=== PATIENT | female | born 1995 | race Caucasian/White ===

== ENCOUNTER 2019-03-23 18:07 | Outpatient (CLI) | payer OTHER ==
[~2019-03-23] VITALS: Ht 165.1 cm; Wt 70.7 kg
[2019-03-23 18:25] VITALS: BP 121/69
[2019-03-23] MEDS ORDERED: PRENTAB9 PO (18:30)
== END 2019-03-23 19:40 | disposition home or self-care (01) ==
LOC: M LDO 18:07
PROVIDERS: ATTEND Obstetrics & Gynecology
DX: O26.893 Other specified pregnancy related conditions, third trimester (principal); N89.8 Other specified noninflammatory disorders of vagina; Z3A.34 34 weeks gestation of pregnancy
CPT/HCPCS: 59025; G0378; G0463

== ENCOUNTER 2019-04-25 10:14 | Inpatient (IN) | payer OTHER ==
[~2019-04-25] VITALS: Ht 165.1 cm; Wt 71.0 kg
[2019-04-25] VITALS (11 sets, daily range): BP systolic 111–129; BP diastolic 53–75
[~2019-04-25 10:14] MED LIST: PRENTAB9 PO
[2019-04-25] MEDS ORDERED: IRON27TA2 PO (10:33)
[2019-04-25] MEDS ORDERED: VITA100T59 PO (10:33)
[2019-04-25] MEDS ORDERED: LACTATED RINGER'S 1000 ML IV STA (11:37)
[2019-04-25] MEDS ORDERED: miSOPROStol 50 MCG 1/2 TAB (S0191) PO ONE (12:00)
[2019-04-25 12:04] LABS: BASO # 0.1 10^3/uL (0.0-0.2); BASO % 0.5 % (0.0-1.0); EOS # 0.2 10^3/uL (0.0-0.5); EOS % 1.1 % (0.0-3.0); HEMATOCRIT 32.1 % (36.0-47.0); HEMOGLOBIN 9.5 g/dl (12.0-15.5); LYMPH # 2.5 10^3/uL (1.5-5.0); LYMPH % 18.9 % (24.0-44.0); MEAN CORPUSCULAR HEMOGLOBIN 22.7 pg (27.0-33.0); MEAN CORPUSCULAR HGB CONC 29.6 g/dl (32.0-36.5); MEAN CORPUSCULAR VOLUME 76.6 fl (80.0-96.0); MONO # 1.7 10^3/uL (0.0-0.8); MONO % 12.6 % (0.0-5.0); NEUTROPHILS # 8.6 10^3/uL (1.5-8.5); NEUTROPHILS % 65.7 % (36.0-66.0); PLATELET COUNT, AUTOMATED 116 10^3/uL (150-450); RED BLOOD COUNT 4.19 10^6/uL (4.00-5.40); WHITE BLOOD COUNT 13.1 10^3/uL (4.0-10.0)
--- NOTE | 2019-04-25 13:06 | HPEPDOC ---
Obstetrical History & Physical General Date of Admission Apr 25, 2019 at 10:14 History of Present Illness 23yo at 39+1wks presents to LND for scheduled IOL d/t gestational thrombocytopenia and anemia ([id number]: Platelets 87, H/H 8.8/28.7). Pt reports +FM, denies LOF/VB/CTX. Pt started on Prednisone series on Sunday, [id number], and took last dose this morning. Pt has had two previous SVDs at 39+1 and 39+4wks, pelvis tested to 7lbs 6oz. GBS Status is negative, HIV negative, Blood type O Positive Chief Complaint: Induction of labor Information Provided By: Patient Care Care: Good Care Number of Visits: 7 Dating Final EDC: May 01, 2019 Final EDC for Daily Update: May 01, 2016 Final EDC by: LMP, 2nd trimester (US) Antepartum Course Height (inches): 65 Pre- weight (lbs.): 140 Admission Weight (lbs.): 157 Change in Weight (lbs.): 17 Past Medical History Past Obstetrical History : Past Obstetrical History: Multigravida (1: at 39+4wks, uncomplicated; 2: at 39+1wks, gestational thrombocytopenia) [employer] History: No pertinent history Past Medical History Surgical History: Gallbladder, Hemlock teeth Family History Significant Family History: No pertinent family hx Social History Marital Status: Family situation: Spouse/partner home Psychosocial History: No pertinent psych hx * Smoker: non-smoker Imunizations Tdap status: declined Allergies Coded Allergies: No Known Allergies (Unverified , 03/23/19) Medications Scheduled Ascorbic Acid (Vitamin C) 100 Mg Tablet, 1 TAB PO DAILY Ferrous Gluconate (Iron) 236 Mg Tablet, 1 TAB PO DAILY No.137/Iron/Folic Acd ( Vitamin Tablet) 1 Each Tablet, 1 TAB PO DAILY Physical Examination Physical Examination GENERAL: Alert and oriented times three. BREAST: . ABDOMEN: Gravid and non-tender to touch. FETUS: Is vertex by sterile vaginal examination. HEART RATE: Regular rate and rhythm. LUNGS: Clear to auscultation. EXTREMITIES: No edema. Vital Signs/I&O O: VSS FHR at admission: 130s, moderate variability, +accels, no decels No CTX present VTX: 2/50/-3, posterior, medium Laboratory Data 24H LABS Laboratory Tests 2 04/25/19 10:49: Serology Scanned Report Hepatitis B Testing 04/25/19 11:35: Immature Granulocyte % (Auto) 1.2, White Blood Count 13.1H, Red Blood Count 4.19, Hemoglobin 9.5L, Hematocrit 32.1L, Mean Corpuscular Volume 76.6L, Mean Corpuscular Hemoglobin 22.7L, Mean Corpuscular Hemoglobin Concent 29.6L, Red Cell Distribution Width 16.6H, Platelet Count 116L, Neutrophils (%) (Auto) 65.7, Lymphocytes (%) (Auto) 18.9L, Monocytes (%) (Auto) 12.6H, Eosinophils (%) (Auto) 1.1, Basophils (%) (Auto) 0.5, Neutrophils # (Auto) 8.6H, Lymphocytes # (Auto) 2.5, Monocytes # (Auto) 1.7H, Eosinophils # (Auto) 0.2, Basophils # (Auto) 0.1, Nucleated Red Blood Cells % (auto) 0.2H, Syphilis Serology NONREACTIVE CBC/BMP Laboratory Tests 04/25/19 11:35 Red Blood Count 4.19, Mean Corpuscular Volume 76.6 L, Mean Corpuscular Hemoglobin 22.7 L, Mean Corpuscular Hemoglobin Concent 29.6 L, Red Cell Distribution Width 16.6 H, Neutrophils (%) (Auto) 65.7, Lymphocytes (%) (Auto) 18.9 L, Monocytes (%) (Auto) 12.6 H, Eosinophils (%) (Auto) 1.1, Basophils (%) (Auto) 0.5, Neutrophils # (Auto) 8.6 H, Lymphocytes # (Auto) 2.5, Monocytes # (Auto) 1.7 H, Eosinophils # (Auto) 0.2, Basophils # (Auto) 0.1 Pertinent Laboratoy Data Blood Type: O+ RBC Antibody Screen: Negative HIV: Positive Hepatitis B: Negative Rapid Plasma Reagin: Nonreactive Rubella: Immune Varicella: Nonreactive Chlamydia/Gonorrhea: Negative Group B Streptococcus: Negative Anatomy Ultrasound Ultrasound Date: December 12, 2018 Placenta Location: Posterior Normal Anatomy: No (limited evaluation of lateral ventricles) Other Ultrasounds [id number]: f/u intracranial anatomy at [facility] - WNL Steroid Therapy Steroid Therapy: Yes (PO Prednisone [id number]) Vaginal Examination Dilation: 2cm Effacement: 50% Station: -3 Cervical Consistency: Medium Cervical Position: Posterior Presentation: Cephalic presentation Tocometer Contractions: No Assessment/Plan Assessment Neeta is a 23yo at 39+1wks admitted to LND for IOL d/t gestational thrombocytopenia. Pt is O Positive, GBS Negative, HIV Negative. Category I FHT Plan Admit to LND, Consented for IOL, labor, and vaginal delivery IV Start, admission labs drawn PO and IV hydration Start IOL with CRB 80/80 and Buccal Cytotec 50mcg CEMF x1-2 hours after cytotec if Category I; then continuous with epidural, Category II tracing, or if pitocin started reassess in 4 hours Consult with OB as indicated Epidural when desires Anticipate Can have lunch VALENTIN MERIDA CNM Apr 25, 2019 13:06
[2019-04-25] MEDS ORDERED: PANTOPRAZOLE 40MG INJ (PROTONIX) (C9113) IV ONE (14:00)
[2019-04-25] MEDS ORDERED: OXYTOCIN DRIP 30 UNITS in APPROPRIATE DILUENT 1 EA IV SCH ×2 (17:00→23:10)
--- NOTE | 2019-04-25 17:00 | IPNPDOC ---
Obstetrical Progress Note Date of Service Apr 25, 2019 Subjective patient is a 23 yo @ 39+1wks gestation IOL for gestational thrombocytopenia. newman bulb placed and came out around 1600. patient feeling mild contractions. vitals: reviewed normal NAD fht: 140/mod mayte/pos accel/no decel. toco: ctx q 2mins ce: 50/-2 a/p patient in early labor. start pit for stronger contractions. recheck 4-6hrs, possible AROM at that time as indicated. patient may request have epidural when she desires. Repeat cbc in anticipation for epidural request. DO Amna Objective Vital Signs Date Time Temp Pulse Resp B/P (MAP) Pulse Ox O2 Delivery O2 Flow Rate FiO2 04/25/19 14:39 97.8 92 124/71 (88) Assessment Heart Rate (FHR): 140 Variability: Moderate Accelerations: Positive Decelerations: None Heart Rate Tracing: Category I Tocometer Contractions: Yes Frequency: regular, every 2-2 min. Sterile Vaginal Examination Dilation: 4 cm Effacement (%): 50% Station: -2 Cervical Consistency: Medium Cervical Position: Middle Postion/Presentation: Cephalic presentation DONTE HERNANDEZ DO Apr 25, 2019 17:00
[2019-04-25] MEDS: LR 1,000 ML IV SCH ×2 (17:21→20:00)
[2019-04-25 18:05] LABS: HEMATOCRIT 32.4 % (36.0-47.0); HEMOGLOBIN 9.7 g/dl (12.0-15.5); MEAN CORPUSCULAR HEMOGLOBIN 22.6 pg (27.0-33.0); MEAN CORPUSCULAR HGB CONC 29.9 g/dl (32.0-36.5); MEAN CORPUSCULAR VOLUME 75.5 fl (80.0-96.0); PLATELET COUNT, AUTOMATED 131 10^3/uL (150-450); RED BLOOD COUNT 4.29 10^6/uL (4.00-5.40); WHITE BLOOD COUNT 14.7 10^3/uL (4.0-10.0)
[2019-04-25] MEDS ORDERED: FENTANYL 2MCG/ML ROPIVACAINE 0.2% IN 0.9% NACL 100ML IVBAG As Ordered ONE (19:33)
[2019-04-25] MEDS ORDERED: EPIDURAL/PCA KEYS XX PRN (21:00)
[2019-04-25] MEDS ORDERED: ONDANSETRON 4MG/2ML VIAL (J2405) IV PRN (21:00)
[2019-04-25] MEDS ORDERED: LACTATED RINGER'S 1000 ML IV PRN (21:00)
[2019-04-25] MEDS ORDERED: diphenhydrAMINE INJ 50MG/ML VIAL (J1200) IV PRN (21:00)
[2019-04-25] MEDS ORDERED: ePHEDrine SULFATE 25 MG/5 ML(5MG/ML) SYRINGE IV PRN (21:00)
[2019-04-25] MEDS ORDERED: REFRIGERATOR IV KEYS XX PRN (21:00)
[2019-04-25] MEDS ORDERED: EPIDURAL COMMENT XX SCH (21:00)
[2019-04-25] MEDS ORDERED: NALOXONE INJ 0.4 MG/1 ML VIAL (J2310) IV PRN (21:00)
[2019-04-25] MEDS ORDERED: FENTANYL/ROPIVACAINE/NACL BAG 100 ML EPIDURAL SCH (21:00)
--- NOTE | 2019-04-25 21:32 | IPNPDOC ---
Obstetrical Progress Note Date of Service Apr 25, 2019 Subjective Patient comfortable with epidural. pit: 2mU fht: 135/mod mayte/pos accel/occasional variable decel toco: ctx q 1-2mins ce: /-2, AROM clear. a/p patient in latent labor, continue to titrate pit to effect. recheck in 4hrs, sooner as indicated. DO Amna Objective Vital Signs Date Time Temp Pulse Resp B/P (MAP) Pulse Ox O2 Delivery O2 Flow Rate FiO2 04/25/19 18:33 81 121/71 (88) 04/25/19 17:20 98.7 Assessment Heart Rate (FHR): 135 Variability: Moderate Accelerations: Positive Decelerations: Variable, Intermittent Heart Rate Tracing: Category II Tocometer Contractions: Yes Frequency: every 1-3 min. Sterile Vaginal Examination Dilation: 4 cm Effacement (%): 50% Station: -2 Cervical Consistency: Medium Cervical Position: Middle Postion/Presentation: Cephalic presentation DONTE HERNANDEZ DO Apr 25, 2019 21:32
[2019-04-25] MEDS ORDERED: MEASLES,MUMPS,RUBELLA VACCINE INJ (MMR-II) (90707) SC SCH (23:15)
[2019-04-25] MEDS ORDERED: DOCUSATE SODIUM 100 MG CAP PO PRN (23:15)
[2019-04-25] MEDS ORDERED: DIBUCAINE 1% OINTMENT 30GM TOP PRN (23:15)
[2019-04-25] MEDS ORDERED: ACETAMINOPHEN TAB 650MG DOSE (2X325MG) PO PRN (23:15)
--- NOTE | 2019-04-25 23:25 | DNPDOC ---
[facility] Delivery Note Delivery Note DATE OF DELIVERY: 25Apr2019 PREDELIVERY DIAGNOSIS: 39+1/7 weeks' gestation and labor. POST DELIVERY DIAGNOSIS: Delivered. PROCEDURE: EMBER FILM MOUNTER: Dr. Carmen Woo DO ANESTHESIA: epidural ESTIMATED BLOOD LOSS: 250 mL. FINDINGS: 3900gm (8lbs, 10oz) infant, Score [7]/[9], nuchal cord times x1 DELIVERY SUMMARY: Come to check patient due to FHT showing recurrent variable unresolved with position changes and O2. Cervix checked with anterior lip at 0 station. Cervix reduced following good maternal effort. Patient continues to push and delivered baby OA, no restitution. Both shoulders delivered transverse. Left shoulder rotated anteriorly and body delivered. Baby placed on maternal abdomen with vigorous cries. Cord allows to stop pulsating. Cord clamped x 2 and cut by FOB. Pitocin bolus started. Cord blood collect per routine. Placenta delivered spontaneously. Fundus massaged firm. Inspection revealed no laceration. baby and mother bonding when I left the room. DO DAVID Woo LUAT N. DO Apr 25, 2019 23:25
[2019-04-26 00:07] LABS: HEMOGLOBIN 8.7 g/dl (12.0-15.5); MEAN CORPUSCULAR VOLUME 76.7 fl (80.0-96.0); PLATELET COUNT, AUTOMATED 108 10^3/uL (150-450); RED BLOOD COUNT 3.78 10^6/uL (4.00-5.40); WHITE BLOOD COUNT 18.2 10^3/uL (4.0-10.0)
[2019-04-26] MEDS: LR 1,000 ML IV SCH (00:08)
[2019-04-26 01:10] VITALS: BP 113/57
[2019-04-26 06:00] VITALS: BP 94/49
--- NOTE | 2019-04-26 07:00 | IPNPDOC ---
Progress Note Date of Service: Apr 26, 2019 Day#: 1 Progress Note SUBJECT: patient is a 23 yo s/p ppd #1 (delivered at late at night). complicated by gestational thrombocytopenia. patient had steroids prior to induction. She has been ambulating, voiding spontaneously without issue and tolerating regular diet. Breast and bottle feeding. Reports lochia is light. Patient is ambulating well. Reports some cramping with . Denies any pain. Voiding and stooling without difficulty. Patient plans for BTL for contraceptive. OBJECTIVE: VITAL SIGNS: Within normal limits, afebrile. Alert and oriented times three. Abdomen: Fundus firm at U-1. Soft, NTTP. A/P patient is ppd #1, doing well. discussed breast feeding, contraceptive option. continue with routine ppc. anticipate dc home tomorrow. Le, DO VS, I&O, 24H, Fishbone Vital Signs/I&O Vital Signs Date Time Temp Pulse Resp B/P (MAP) Pulse Ox O2 Delivery O2 Flow Rate FiO2 04/26/19 06:00 98.8 83 16 94/49 (64) I&O- Last 24 Hours up to 6 AM 04/26/19 06:00 Intake Total 1890 ml Output Total 1350 ml Balance 540 ml Laboratory Data 24H LABS Laboratory Tests 2 04/25/19 10:49: Serology Scanned Report Hepatitis B Testing 04/25/19 11:35: Immature Granulocyte % (Auto) 1.2, White Blood Count 13.1H, Red Blood Count 4.1 9, Hemoglobin 9.5L, Hematocrit 32.1L, Mean Corpuscular Volume 76.6L, Mean Corpuscular Hemoglobin 22.7L, Mean Corpuscular Hemoglobin Concent 29.6L, Red Cell Distribution Width 16.6H, Platelet Count 116L, Neutrophils (%) (Auto) 65.7, Lymphocytes (%) (Auto) 18.9L, Monocytes (%) (Auto) 12.6H, Eosinophils (%) (Auto) 1.1, Basophils (%) (Auto) 0.5, Neutrophils # (Auto) 8.6H, Lymphocytes # (Auto) 2.5, Monocytes # (Auto) 1.7H, Eosinophils # (Auto) 0.2, Basophils # (Auto) 0.1, Nucleated Red Blood Cells % (auto) 0.2H, Syphilis Serology NONREACTIVE 9/20/19 17:26: Nucleated Red Blood Cells % (auto) 0.0 04/25/19 23:57: Nucleated Red Blood Cells % (auto) 0.1H CBC/BMP Laboratory Tests 04/25/19 11:35 Red Blood Count 4.19, Mean Corpuscular Volume 76.6 L, Mean Corpuscular Hemoglobin 22.7 L, Mean Corpuscular Hemoglobin Concent 29.6 L, Red Cell D istribution Width 16.6 H, Neutrophils (%) (Auto) 65.7, Lymphocytes (%) (Auto) 18.9 L, Monocytes (%) (Auto) 12.6 H, Eosinophils (%) (Auto) 1.1, Basophils (%) (Auto) 0.5, Neutrophils # (Auto) 8.6 H, Lymphocytes # (Auto) 2.5, Monocytes # (Auto) 1.7 H, Eosinophils # (Auto) 0.2, Basophils # (Auto) 0.1 04/25/19 17:26 Red Blood Count 4.29, Mean Corpuscular Volume 75.5 L, Mean Corpuscular Hemoglobin 22.6 L, Mean Corpuscular Hemoglobin Concent 29.9 L, Red Cell Distribution Width 16.8 H 04/25/19 23:57 Red Blood Count 3.78 L, Mean Corpuscular Volume 76.7 L, Mean Corpuscular Hemoglobin 23.0 L, Mean Corpuscular Hemoglobin Concent 30.0 L, Red Cell Distribution Width 16.9 H DONTE HERNANDEZ DO Apr 26, 2019 06:59
[2019-04-26] MEDS: IBUPROFEN 800 MG TAB PO PRN ×2 (07:57→19:45)
[2019-04-26] MEDS: PRENATAL VITAMINS CHEWABLE TABLET PO SCH (07:57)
[2019-04-26 08:04] LABS: HEMATOCRIT 28.1 % (36.0-47.0); HEMOGLOBIN 8.4 g/dl (12.0-15.5); MEAN CORPUSCULAR HGB CONC 29.9 g/dl (32.0-36.5); PLATELET COUNT, AUTOMATED 109 10^3/uL (150-450); RED BLOOD COUNT 3.65 10^6/uL (4.00-5.40); WHITE BLOOD COUNT 17.2 10^3/uL (4.0-10.0)
[2019-04-26 18:13] VITALS: BP 119/75
[2019-04-27 06:00] VITALS: BP 114/70
--- NOTE | 2019-04-27 07:21 | DS.PDOC ---
Discharge Summary General Date of Admission Apr 25, 2019 at 10:14 Date of Discharge Apr 27, 2019 Discharge Summary HOSPITAL COURSE: Neeta is a 23 yo G4 now P3 who underwent an uncomplicated on 25Apr2019 after being admitted for an IOL for gestational thrombocytopenia. Her course has been unremarkable. Platelets remained stable . On her day of discharge she met all appropriate discharge criteria. She was ambulating, voiding, tolerating a regular diet, had minimal lochia, and minimal pain. DISCHARGE MEDICATIONS: Please see below. ALLERGIES: Please see below. PHYSICAL EXAMINATION ON DISCHARGE: VITAL SIGNS: Please see below. GENERAL: AAOX3, sitting up in bed, NAD, pleasant and conversant ABDOMINAL EXAMINATION: Fundus firm at U-2. No fundal tenderness EXTREMITIES: No edema PSYCHIATRIC EXAMINATION: Affect appropriate. LABORATORY DATA: Please see below. ACTIVITY: Pelvic rest for 6 weeks. DIET: Regular DISCHARGE PLAN: Discharge home DISPOSITION: Discharge home on 27Apr2019. DISCHARGE INSTRUCTIONS: 1. Pelvic rest for 6 weeks. ITEMS TO FOLLOWUP ON ON OUTPATIENT: 1. appointment in 6 weeks DISCHARGE CONDITION: Stable. TIME SPENT ON DISCHARGE: Greater than 20 minutes. Toña Kelly DO Vital Signs/I&Os Vital Signs Date Time Temp Pulse Resp B/P (MAP) Pulse Ox O2 Delivery O2 Flow Rate FiO2 04/27/19 06:00 98.8 85 18 114/70 (85) Laboratory Data Labs 24H Laboratory Tests 2 04/26/19 07:28: Nucleated Red Blood Cells % (auto) 0.0 CBC/BMP Laboratory Tests 04/26/19 07:28 Red Blood Count 3.65 L, Mean Corpuscular Volume 77.0 L, Mean Corpuscular Hemoglobin 23.0 L, Mean Corpuscular Hemoglobin Concent 29.9 L, Red Cell Distribution Width 16.8 H Discharge Medications Scheduled Ascorbic Acid (Vitamin C) 100 Mg Tablet, 1 TAB PO DAILY, (Reported) Ferrous Gluconate (Iron) 236 Mg Tablet, 1 TAB PO DAILY, (Reported) No.137/Iron/Folic Acd ( Vitamin Tablet) 1 Each Tablet, 1 TAB PO DAILY, (Reported) Allergies Coded Allergies: No Known Allergies (Unverified , 03/23/19) TOÑA KELLY DO Apr 27, 2019 07:21
[2019-04-27] MEDS ORDERED: IBUP80TA PO (07:23)
[2019-04-27] MEDS ORDERED: ACET1TAB55 PO (07:23)
[2019-04-27] MEDS ORDERED: DIBU10OI TOP (07:23)
[2019-04-27] MEDS ORDERED: INFLUENZA QUADRIVALENT PF VACCINE 0.5ML SYRINGE (90686) IM ONE (09:00)
[2019-04-27] MEDS: PRENATAL VITAMINS CHEWABLE TABLET PO SCH (09:16)
== END 2019-04-27 10:55 | disposition home or self-care (01) | DRG 807 ==
LOC: M LDI 10:14 → M OBS 04-26 01:10
PROVIDERS: ADMIT Registered Nurse Maternal Newborn; ATTEND Registered Nurse Maternal Newborn
PROC: 10E0XZZ Delivery of Products of Conception, External Approach (ICD-10-PCS; principal; 2019-04-25)
PROC: 3E0P7GC Introduction of Other Therapeutic Substance into Female Reproductive, Via Natural or Artificial Opening (ICD-10-PCS; 2019-04-25)
PROC: 10907ZC Drainage of Amniotic Fluid, Therapeutic from Products of Conception, Via Natural or Artificial Opening (ICD-10-PCS; 2019-04-25)
DX: O99.12 Other diseases of the blood and blood-forming organs and certain disorders involving the immune mechanism complicating childbirth (principal); Z37.0 Single live birth; Z3A.39 39 weeks gestation of pregnancy; D69.6 Thrombocytopenia, unspecified; O99.02 Anemia complicating childbirth; O76 Abnormality in fetal heart rate and rhythm complicating labor and delivery; O69.1XX0 Labor and delivery complicated by cord around neck, with compression, not applicable or unspecified

== ENCOUNTER 2019-07-15 06:53 | Day surgery (SDC) | payer OTHER ==
[~2019-07-15] VITALS: Ht 165.1 cm; Wt 69.4 kg
[~2019-07-15 06:53] MED LIST changes: +ACET1TAB55 PO; +DIBU10OI TOP; +IBUP80TA PO; +IRON27TA2 PO; +LR 1,000 ML IV ONE; +VITA100T59 PO
[2019-07-15 07:43] LABS: HEMATOCRIT 40.4 % (36.0-47.0)
[2019-07-15] MEDS ORDERED: MIDAZOLAM INJ 2 MG/2 ML VIAL (J2250) As Ordered ONE (07:51)
[2019-07-15] MEDS ORDERED: fentaNYL 250 MCG/5 ML INJECTION (J3010) As Ordered ONE (07:51)
[2019-07-15] MEDS ORDERED: PROPOFOL 200 MG/20 ML VIAL As Ordered ONE (07:51)
[2019-07-15] MEDS ORDERED: ROCURONIUM BROMIDE 50 MG/5 ML VIAL As Ordered ONE (07:51)
[2019-07-15] MEDS ORDERED: ONDANSETRON 4MG/2ML VIAL (J2405) As Ordered ONE (07:52)
[2019-07-15] MEDS ORDERED: KETOROLAC 60 MG/2 ML VIAL (J1885) As Ordered ONE (07:52)
[2019-07-15] MEDS ORDERED: dexameTHASONE 4 MG/ML 1ML VIAL (J1100) As Ordered ONE (07:52)
[2019-07-15 07:59] LABS: HCG, SERUM QUALITATIVE NEGATIVE (NEGATIVE)
[2019-07-15] MEDS ORDERED: ACETAMINOPHEN 1000MG 100ML IV BTL (OFIRMEV) (J0131 PER 10MG) As Ordered ONE (09:15)
[2019-07-15] MEDS ORDERED: HYDROmorphone HCL 2 MG/ML 1ML VIAL (J1170) As Ordered ONE (09:19)
[2019-07-15] MEDS ORDERED: SUGAMMADEX SODIUM 500 MG/5 ML VIAL (BRIDION) As Ordered ONE (09:23)
[2019-07-15] MEDS: BUPIVACAINE HCL 0.25% 30 ML VIAL As Ordered ONE ×2 (09:30→09:35)
[2019-07-15] MEDS ORDERED: SILVER NITRATE APPLICATOR As Ordered ONE (10:08)
[2019-07-15] MEDS ORDERED: ONDANSETRON 4MG/2ML VIAL (J2405) IV PRN (10:45)
[2019-07-15] MEDS ORDERED: fentaNYL 100 MCG/2 ML INJECTION (J3010) IV PRN (10:45)
[2019-07-15] MEDS ORDERED: LR 1,000 ML IV SCH (10:45)
[2019-07-15] MEDS ORDERED: oxyCODONE 5MG TAB PO PRN (10:45)
[2019-07-15] MEDS ORDERED: METOCLOPRAMIDE INJ 10MG/2ML VIAL (J2765) IV PRN (10:45)
[2019-07-15] MEDS ORDERED: MEPERIDINE INJ 25 MG/ML VIAL (J2175) IV PRN (10:45)
[2019-07-15 10:55] VITALS: BP 116/64
--- NOTE | 2019-07-15 11:19 | RO ---
DATE OF OPERATION: 07/15/2019 STAFF SURGEON: Barbara Skinner MD MANAGER STARS: Dr. Carmen Woo CLINICAL SERVICE: Gynecology. INDICATIONS FOR OPERATION: Neeta is a 23-year-old, (G) 3, para (P) 3, who endorsed having satisfied parity. I met with her in the office for a consultation appointment and she stated that she and her were completely in agreement that they were done building their family and they desired no future childbearing. She wanted permanent sterilization. Again, I confirmed this at her preoperative appointment and further I confirmed this today just prior to the surgery and at all times she endorsed that she was 100% certain. PREOPERATIVE DIAGNOSIS: Satisfied parity. POSTOPERATIVE DIAGNOSIS: Satisfied parity. MATERIAL FORWARDED TO THE LAB: Bilateral fallopian tubes. DESCRIPTION OF FINDINGS: Laparoscopic findings included a normal appearing uterus, fallopian tubes, ovaries, appendix, and liver edge. There was some normal likely menstrual of fluid in the posterior cul-de-sac, very scant amount. No obvious endometriosis or adhesions within the pelvis. INFECTION CLASSIFICATION: 2. ESTIMATED BLOOD LOSS: 5 mL. URINE OUTPUT: 400 mL of clear urine. IV FLUIDS: 1200 mL lactated Ringer's. OPERATION PERFORMED: Laparoscopic bilateral salpingectomy. DESCRIPTION OF OPERATION: After obtaining informed consent, the patient was taken to the operating room. General endotracheal anesthesia was established and the patient was placed in low lithotomy position. The patient was prepped and draped in the usual sterile fashion. She was placed in Trendelenburg position. Tafoya catheter was placed. [place] speculum was placed in the vagina and visualization of the cervix was obtained. Anterior lip of the cervix was grasped with a single-tooth tenaculum. Cervix was sequentially dilated using Darren's dilators. Uterus was then sounded to 7 cm. The AppleTreeBook uterine manipulator was placed through the cervix into the uterus and the tenaculum was removed with site hemostasis observed. [place] speculum was removed. The patient was taken out of Trendelenburg position. A 5 mm incision was made in the infraumbilical fold beneath the subcutaneous tissue after anesthetizing with 0.25% Marcaine. The lower abdominal wall was manually grabbed and lifted up and the Optiview trocar was placed at a 90 degree angle. The laparoscope was advanced through the port and intra-abdominal placement was confirmed with no injury noted below the point of entry. Continuous low carbon dioxide began to establish pneumoperitoneum. We then made two more incisions 5 mm in size in the right and left lower quadrants after anesthetizing with 0.25% Marcaine placing two more 5 mm trocars under direct visualization. Pelvic and abdominal survey were conducted beginning at anterior cul-de-sac and anterior portion of the uterus which were normal in appearance. Left and right fallopian tubes, round ligaments, broad ligaments, and ovaries were observed with normal appearance. Posterior cul-de-sac was observed to be normal. There was just some scant normal menstrual fluid. Survey of upper abdomen revealed a normal-appearing appendix and normal liver edge. We then introduced the LigaSure and used the LigaSure to excise both fallopian tubes. The fallopian tubes were pulled up through the trocar and both sent to pathology. We reobserved the pelvis, took pictures and noted complete hemostasis. At that point, we then removed the left and right lower quadrant ports under direct visualization and observed the site to be hemostatic. The pneumoperitoneum was released prior to removal of the umbilical port. Incisions were approximated with #4-0 Monocryl and Dermabond. All instruments were removed from the vagina. The patient was returned to supine position. All counts were correct times two. The patient tolerated procedure well and was awakened from general anesthesia and taken to the recovery room in stable condition.
== END 2019-07-15 11:25 | disposition home or self-care (01) ==
LOC: M SDC 06:53
PROVIDERS: ATTEND Obstetrics & Gynecology
DX: Z30.2 Encounter for sterilization (principal)
CPT/HCPCS: 36415; 58661; 84703; 85014; 85018; 86850; 86900; 86901; 88302; J0131; J1100; J1170; J1885; J2250; J2405; J3010